=== PATIENT | male | born 1935 | race Caucasian/White ===

== ENCOUNTER 2019-06-21 11:45 | Inpatient (IN) | payer MEDICARE, MEDICAID ==
[~2019-06-21] VITALS: Ht 170.2 cm; Wt 68.2 kg
[~2019-06-21 11:45] MED LIST: ASPI-4 PO; ATOR40TA7 PO; DIPH-423 PO; DOXA2TAB PO; Fish Oil PO; LEVO100T PO; LISI-644 PO; PANT-47 PO; Vicodin PO; [UNRECOGNIZED DRUG - OTHER] PO
[2019-06-21] MEDS ORDERED: normal saline 1000ML IV soln IVB ONE (12:00)
[2019-06-21 12:39] LABS: BASOPHILS % (AUTO) 0.5 % (0-1); EOSINOPHILS % (AUTO) 0.5 % (0-6); HEMATOCRIT 37.5 % (42.0-52.0); HEMOGLOBIN 12.9 g/dl (14.0-17.9); LYMPHOCYTES # (AUTO) 0.6 X10'3 (1.1-4.8); LYMPHOCYTES % (AUTO) 8.5 % (21-51); MEAN CORPUSCULAR HEMOGLOBIN 32.8 PG (27.0-31.0); MEAN CORPUSCULAR HGB CONC 34.4 g/dL (33.0-36.5); MEAN CORPUSCULAR VOLUME 95.4 FL (78-98); MEAN PLATELET VOLUME 7.9 FL (7.4-10.4); MONOCYTES # (AUTO) 0.9 X10'3 (0-0.9); MONOCYTES % (AUTO) 12.6 % (2-12); NEUTROPHILS # (AUTO) 5.5 X10'3 (1.8-7.7); NEUTROPHILS % (AUTO) 77.9 % (42-75); PLATELET COUNT 195 X10'3 (140-440); RED BLOOD COUNT 3.93 X10'6 (4.70-6.10); RED CELL DISTRIBUTION WIDTH 13.7 % (11.5-14.5); WHITE BLOOD COUNT 7.1 X10'3 (4.5-11.0)
[2019-06-21 13:15] LABS: ALANINE AMINOTRANSFERASE 61 U/L (12-78); ALBUMIN 3.3 G/DL (3.4-5.0); ALKALINE PHOSPHATASE 121 IU/L (46-116); ANION GAP 10 (8-16); ASPARTATE AMINO TRANSFERASE 61 U/L (10-37); BILIRUBIN,TOTAL 1.5 MG/DL (0.1-1.0); BLOOD UREA NITROGEN 18 MG/DL (7-18); BUN/CREATININE RATIO 17.3 (5.4-32.0); CALCIUM 8.3 MG/DL (8.5-10.1); CHLORIDE 110 MMOL/L (99-107); CREATININE 1.04 MG/DL (0.60-1.10); GLUCOSE 127 MG/DL (70-104); SODIUM 143 MMOL/L (135-145); TOTAL CARBON DIOXIDE 23.5 MMOL/L (24-32); TOTAL PROTEIN 6.5 G/DL (6.4-8.2); eGFR 68 ML/MIN
[2019-06-21 13:22] LABS: MAGNESIUM 1.7 MG/DL (1.5-2.4)
[2019-06-21] MEDS ORDERED: diphenhydrAMINE 50 mg/ml inj IV PRN (14:15)
[2019-06-21] MEDS ORDERED: bisacodyl 10mg suppository rectal RC PRN (14:15)
[2019-06-21] MEDS ORDERED: magnesium 2GM in 50ml NS 50 ML IV PRN (14:15)
[2019-06-21] MEDS ORDERED: diphenhydrAMINE 25mg capsule PO PRN (14:15)
[2019-06-21] MEDS ORDERED: aminophylline 250mg/10ml inj. IV PRN (14:15)
[2019-06-21] MEDS ORDERED: potassium Cl 20 mEq SR tablet PO PRN ×2 (14:15)
[2019-06-21] MEDS ORDERED: nitroGLYCERIN 0.4mg SUBLingual tab SL PRN ×2 (14:15)
[2019-06-21] MEDS ORDERED: mag hydrox/Alum hydrox/simeth 30ml oral suspension PO PRN (14:15)
[2019-06-21] MEDS ORDERED: metoprolol tartrate 1mg/ml inj IV PRN (14:15)
[2019-06-21] MEDS ORDERED: magnesium 4gm in 100ml NS 100 ML IV PRN (14:15)
[2019-06-21] MEDS ORDERED: morphine 2 MG/ML inj. syringe IV PRN ×2 (14:15)
[2019-06-21] MEDS ORDERED: ondansetron/PF 4mg/2ml inj IV PRN (14:15)
[2019-06-21] MEDS ORDERED: HYDROcodone/acetaminophen 5mg/325mg tablet PO PRN (14:15)
[2019-06-21] MEDS ORDERED: HYDROcodone/acetaminophen 10/325mg tab PO PRN (14:15)
[2019-06-21] MEDS ORDERED: magnesium hydroxide 30ml (MOM) UD suspension PO PRN (14:15)
[2019-06-21] MEDS ORDERED: metoclopramide 5 mg/ml inj IV PRN (14:15)
[2019-06-21] MEDS ORDERED: regadenoson 0.4mg/5ml syringe IV PRN (14:15)
[2019-06-21] MEDS ORDERED: potassium CL 10mEq/100ml bag 100 ML IV PRN ×2 (14:15)
[2019-06-21] MEDS ORDERED: acetaminophen 650mg rectal suppository RC PRN (14:15)
[2019-06-21] MEDS ORDERED: acetaminophen 325mg tablet PO PRN ×2 (14:15)
[2019-06-21] MEDS ORDERED: magnesium Cl slow-release 64mg tablet PO PRN (14:15)
[2019-06-21] MEDS ORDERED: LEVO50TA8 PO (15:37)
[2019-06-21] MEDS ORDERED: DOXA1TAB2 PO (15:37)
[2019-06-21] MEDS ORDERED: AMLO10TA13 PO (15:37)
[2019-06-21] MEDS: ringers solution, lacted 1,000 ML IV SCH (15:43)
[2019-06-21] MEDS ORDERED: BENA40TA72 PO (15:56)
--- NOTE | 2019-06-21 16:03 | NUR ---
Patient report received from Lea ÁLVAREZ in the ER. Patient is to be admitted to room 3024B. Will await patients arrival.
--- NOTE | 2019-06-21 16:33 | NUR ---
Patient has arrived on the floor to room 3025U. Patient was able to ambulate to his bed with no assistance and a steady gait. Patient has his IVF infusing per MD orders. Patients v/s, 2 RN skin check, physical assessment and orientation to the room (calll light within reach)have been completed. Patient has no complaints at this time. Will continue to monitor.
[2019-06-21 16:35] VITALS: BP 188/79
--- NOTE | 2019-06-21 18:28 | NUR ---
Problems reprioritized. Patient report given, questions answered & plan of care reviewed with HENRI Barrow. Patient has no complaints at this time and is laying in bed.
[2019-06-21] MEDS ORDERED: heparin 25,000 UNIT/250ml bag 250 ML IV SCH (18:43)
--- NOTE | 2019-06-21 18:44 | NUR ---
Patient in room PCU 3024. I have received report from HENRI Encinas and had the opportunity to ask questions and assume patient care. Patient awake for bedside report, on room air, with 100 mL/hr LR infusing per provider order. Will continue to monitor closely.
[2019-06-21] MEDS ORDERED: heparin 10,000 units/1 ML INJ IV PRN (18:45)
[2019-06-21] MEDS ORDERED: heparin 10,000 units/1 ML INJ IV ONE (18:45)
[2019-06-21 19:00] VITALS: BP 179/67
[2019-06-21] MEDS: docusate sod 100mg capsule PO SCH (20:00)
[2019-06-21] MEDS: K and/or MAG REPLACEMENT MC SCH (20:00)
[2019-06-21] MEDS: metoprolol tartrate 12.5mg (1/2 tablet) PO SCH (20:37)
[2019-06-21] MEDS ORDERED: doxazosin mesylate 2mg tablet PO SCH (21:00)
[2019-06-21] MEDS ORDERED: temazepam 15mg capsule PO PRN (21:00)
--- NOTE | 2019-06-21 21:30 | NUR ---
Heparin gtt started/infusing at 2129. Cardiac PTT ordered for 1839 not performed by lab at set time. Sample collected by RN and sent down to lab with starting PTT of 27. Next cardiac PTT to be drawn at 06/22 at 0330. Will continue to monitor closely.
[2019-06-21 21:53] LABS: PARTIAL THROMBOPLASTIN TIME 27 SECONDS (22-32)
--- NOTE | 2019-06-21 22:07 | NUR ---
Critical 6 hour troponin of 1.27. Dr. Bunn notified. No new orders at this time. Will continue to monitor closely.
[2019-06-21 23:00] VITALS: BP 144/55
[2019-06-22] MEDS: ringers solution, lacted 1,000 ML IV SCH (01:02)
--- NOTE | 2019-06-22 01:16 | NUR ---
Infusing at 12 units/kg/hr per provider order.
--- NOTE | 2019-06-22 01:17 | NUR ---
Critical 12 hour troponin of 1.95. Dr. Bunn notified. No new orders at this time. Will continue to monitor closely.
[2019-06-22 04:11] LABS: HEMATOCRIT 37.3 % (42.0-52.0); HEMOGLOBIN 12.7 g/dl (14.0-17.9); MEAN CORPUSCULAR HEMOGLOBIN 32.4 PG (27.0-31.0); MEAN CORPUSCULAR HGB CONC 34.1 g/dL (33.0-36.5); MEAN PLATELET VOLUME 8.1 FL (7.4-10.4); PLATELET COUNT 187 X10'3 (140-440); RED BLOOD COUNT 3.93 X10'6 (4.70-6.10); RED CELL DISTRIBUTION WIDTH 13.6 % (11.5-14.5); WHITE BLOOD COUNT 6.5 X10'3 (4.5-11.0)
[2019-06-22 04:23] LABS: ALBUMIN 3.2 G/DL (3.4-5.0); ANION GAP 6 (8-16); BLOOD UREA NITROGEN 12 MG/DL (7-18); BUN/CREATININE RATIO 12.6 (5.4-32.0); CALCIUM 8.6 MG/DL (8.5-10.1); CHLORIDE 109 MMOL/L (99-107); CHOL/HDL RATIO 3.5 (0.00-4.99); CHOLESTEROL 120 MG/DL (0-200); CREATININE 0.95 MG/DL (0.60-1.10); GLUCOSE 80 MG/DL (70-104); HDL CHOLESTEROL 34 MG/DL (35-60); LDL CHOLESTEROL 78 MG/DL (50-100); MAGNESIUM 1.7 MG/DL (1.5-2.4); PHOSPHORUS 2.8 MG/DL (2.3-4.5); POTASSIUM 3.7 MMOL/L (3.5-5.1); SODIUM 142 MMOL/L (135-145); TOTAL CARBON DIOXIDE 27.1 MMOL/L (24-32); TRIGLYCERIDES 83 MG/DL (20-135); eGFR 76 ML/MIN
--- NOTE | 2019-06-22 05:30 | NUR ---
0330 Cardiac PTT resulted with subtherapeutic value of 42. Per protocol, 2500 unit heparin bolus administered IV. Increased rate from 1200 units/hr to 1400 units/hr. Addendum: 06/22/19 at 0629 by Heidi Briggs RN Next cardiac PTT to be drawn at 1130.
[2019-06-22 06:00] VITALS: BP 154/67
--- NOTE | 2019-06-22 06:29 | NUR ---
Problems reprioritized. Patient report given, questions answered & plan of care reviewed with HENRI Harris and HENRI Ramirez.
--- NOTE | 2019-06-22 06:38 | NUR ---
Patient in room PCU 3024. I have received report from Tobias ÁLVAREZ and had the opportunity to ask questions and assume patient care.
--- NOTE | 2019-06-22 06:38 | NUR ---
Patient in room PCU 3024. I have received report from Tobias ÁLVAREZ and had the opportunity to ask questions and assume patient care. Patient asleep and resting comfortably. In no acute distress. All immediate needs met.
[2019-06-22] MEDS ORDERED: levoTHYROXINE 25mcg tablet PO SCH (07:00)
[2019-06-22] MEDS ORDERED: aspirin 325mg tablet PO SCH (08:00)
[2019-06-22] MEDS: docusate sod 100mg capsule PO SCH (08:00)
[2019-06-22] MEDS ORDERED: amLODIPine 5mg tablet PO SCH (08:00)
[2019-06-22] MEDS ORDERED: enoxaparin 40mg/0.4ml syringe SUBCUT SCH (08:00)
[2019-06-22] MEDS ORDERED: lisinopril 20mg tablet PO SCH (08:00)
[2019-06-22] MEDS ORDERED: pantoprazole 40mg Tablet.DR PO SCH (08:00)
[2019-06-22] MEDS: K and/or MAG REPLACEMENT MC SCH (08:00)
[2019-06-22] MEDS ORDERED: atorvastatin 20mg tablet PO SCH (08:00)
[2019-06-22] MEDS ORDERED: aspirin 81mg tablet.DR PO SCH (08:00)
--- NOTE | 2019-06-22 08:11 | NUR ---
PAGER ID: [phone] MESSAGE: RE: Lc Martinez [id number]. Lexiscan on hold due to rising trops. Last trop . Do you want me to order another trop for evaluation? Please advise. Thank you. Kimberly Matos Addendum: 06/22/19 at 0811 by Kimberly Haque RN Paged Dr. Ko regarding Lexiscan.
[2019-06-22 11:00] VITALS: BP 112/42
[2019-06-22] MEDS: metoprolol tartrate 12.5mg (1/2 tablet) PO SCH (11:19)
[2019-06-22 11:20] VITALS: BP_SYST 163
[2019-06-22] MEDS ORDERED: METO25TA6 PO (11:46)
[2019-06-22] MEDS ORDERED: ATOR80TA PO (11:46)
[2019-06-22] MEDS ORDERED: NITR0.4T51 SL (11:46)
[2019-06-22] MEDS ORDERED: BENA40TA72 PO (11:46)
[2019-06-22] MEDS ORDERED: ISOS30TA9 PO (11:46)
--- NOTE | 2019-06-22 11:46 | NUR ---
CRITICAL LAB VALUE TAKEN FROM LAB, REPORTED TO PRIMARY RN.
--- NOTE | 2019-06-22 13:02 | NUR ---
Patient stable for discharge per MD orders. All discharge instructions reviewed and all questions answered. Provided patient education on cholesterol as well as a cardiac diet. All new prescriptions called into [facility] on [address]. Patient educated on all new medications as well as dosage changes for current meds. Patient to follow up with PCP in 1 week and get referral to a seasonal sales associate. PIV discontinued and cannula intact. lead security officer discontinued. All patient belongings packed up and sent with patient. Patient wheeled to lobby by RN.
[2019-06-24] MEDS ORDERED: AMLO10TA PO (13:43)
[2019-06-24] MEDS ORDERED: ISOS30TA10 PO (13:43)
[2019-06-24] MEDS ORDERED: ATOR80TA PO (13:43)
[2019-06-24] MEDS ORDERED: BENA40TA72 PO (13:47)
== END 2019-06-22 13:02 | disposition home or self-care (01) | DRG 282 ==
LOC: ER 11:45 → ED HOLD 14:15 → EDBEDREQ 15:51 → PCU 3S 16:33 → OBSVTOIN 06-22 08:45
PROVIDERS: ADMIT Family Medicine; ATTEND Family Medicine
DX: I21.4 Non-ST elevation (NSTEMI) myocardial infarction (principal); E03.9 Hypothyroidism, unspecified; E78.00 Pure hypercholesterolemia, unspecified; E78.5 Hyperlipidemia, unspecified; Z60.2 Problems related to living alone; K21.9 Gastro-esophageal reflux disease without esophagitis; R74.0 Nonspecific elevation of levels of transaminase and lactic acid dehydrogenase [LDH]; I10 Essential (primary) hypertension; I25.119 Atherosclerotic heart disease of native coronary artery with unspecified angina pectoris; I25.2 Old myocardial infarction; Z90.49 Acquired absence of other specified parts of digestive tract
CPT/HCPCS: 36415; 71045; 80048; 80053; 80061; 83036; 83735; 83880; 84100; 84484; 85025; 85027; 85610; 85730; 87081; 93005; 93306; 96374; 96376; 99285; G0378; J1644; J7120